=== PATIENT | male | born 1960 | race Caucasian/White ===

== ENCOUNTER → 2024-03-24 | Day surgery (SDC) | payer BC, MEDICARE ==
[2024-03-23 09:33] VITALS: BMI 33.7
[~2024-03-24] MED LIST: Dexamethasone 4 mg/ml Vial ONE; Lidocaine 2% PF 5 ML VIAL ONE; Ondansetron PF 4 MG/2 ML Vial ONE; PROPOFOL 0 ML ONE; fentaNYL 50 mcg/mL 1 mL Vial ONE
[2024-03-24 12:32] LABS: #Basophils 0.02 10x3/uL (0.0-0.2); #Eosinophils 0.06 10x3/uL (0.0-0.5); #Monocytes 0.46 10x3/uL (0.0-1.1); #Neutrophils 3.38 10x3/uL (1.5-8.4); %Basophils 0.3 % (0.0-2.0); %Lymphocytes 31.9 % (18.0-47.0); %Monocytes 7.9 % (0.0-10.0); %Neutrophils 58.4 % (40.0-75.0); Hematocrit 46.4 % (38.8-50.0); Hemoglobin 15.6 g/dL (13.5-17.5); Mean Corpuscular HGB CONC 33.6 g/dL (32.0-36.0); Mean Corpuscular Hemoglobin 32.5 pg (27.0-33.0); Mean Corpuscular Volume 96.7 fL (81.2-95.1); Mean Platelet Volume 9.8 fL (7.4-10.4); Platelet Count 129 10x3/uL (150-450); RBC Distribution Width 10.9 % (11.5-14.5); White Blood Cell (WBC) Count 5.8 10x3/uL (3.5-10.5)
[2024-03-24 12:47] LABS: Anion Gap 14 mmol/L (10-20); BUN (Urea Nitrogen) 16 mg/dL (8.4-25.7); Calc. Creatinine Clearance 104 mL/min (70-130); Calcium 9.9 mg/dL (7.8-10.44); Carbon Dioxide 28 mmol/L (23-31); Chloride 101 mmol/L (98-107); Estimated GFR 72; Glucose 137 mg/dL (80-115); Potassium 3.9 mmol/L (3.5-5.1); Sodium 139 mmol/L (136-145)
== END ==
LOC: CSHSDC 10:24
PROVIDERS: ATTEND Podiatrist Foot & Ankle Surgery
DX: M19.071 Primary osteoarthritis, right ankle and foot (principal); M72.2 Plantar fascial fibromatosis; Z53.9 Procedure and treatment not carried out, unspecified reason; Z88.0 Allergy status to penicillin; Z88.6 Allergy status to analgesic agent
CPT/HCPCS: 36415; 80048; 85025; J1100; J2405; J2704; J3010

== ENCOUNTER 2024-03-31 09:41 | Day surgery (SDC) | payer BC, MEDICARE ==
[2024-03-26 15:31] VITALS: BMI 33.7
[2024-03-31] MEDS ORDERED: Bupivacaine PF 0.5% 30 ML VIAL ONE (11:48)
[2024-03-31] MEDS ORDERED: PROPOFOL 20 ML ONE ×2 (11:55→11:58)
[2024-03-31] MEDS ORDERED: Lidocaine 1% PF 5 ML VIAL ONE (11:56)
[2024-03-31] MEDS ORDERED: fentaNYL 50 mcg/mL 1 mL Vial ONE ×2 (11:56→12:17)
[2024-03-31] MEDS ORDERED: Triamcinolone 40 MG/ML VIAL ONE ×2 (12:09→13:01)
[2024-03-31] MEDS ORDERED: Clindamycin/D5W 600 mg/50 ml Premix Bag ONE (12:12)
[2024-03-31] MEDS ORDERED: Dexamethasone 4 mg/ml Vial ONE (12:25)
[2024-03-31] MEDS ORDERED: Ondansetron PF 4 MG/2 ML Vial ONE (12:25)
[2024-03-31] MEDS ORDERED: ePHEDrine Sulfate 50 MG/10 ML VIAL ONE (12:29)
[2024-03-31] MEDS ORDERED: PHENYLEPHRINE-NS 100 MCG/ML 10 ML SYRINGE ONE (12:47)
== END 2024-03-31 14:36 | disposition home or self-care (01) ==
LOC: CSHSDC 09:41
PROVIDERS: ATTEND Podiatrist Foot & Ankle Surgery
PROC: 0S9F3ZZ Drainage of Right Ankle Joint, Percutaneous Approach (ICD-10-PCS; principal; 2024-03-31)
PROC: 0QBM0ZZ Excision of Left Tarsal, Open Approach (ICD-10-PCS; principal; 2024-03-31)
DX: M19.071 Primary osteoarthritis, right ankle and foot (principal); M72.2 Plantar fascial fibromatosis; I25.10 Atherosclerotic heart disease of native coronary artery without angina pectoris; I65.29 Occlusion and stenosis of unspecified carotid artery; I48.91 Unspecified atrial fibrillation; I48.92 Unspecified atrial flutter; I10 Essential (primary) hypertension; E11.9 Type 2 diabetes mellitus without complications; E78.5 Hyperlipidemia, unspecified; F41.9 Anxiety disorder, unspecified; F32.A Depression, unspecified; G47.33 Obstructive sleep apnea (adult) (pediatric); G89.29 Other chronic pain; M06.9 Rheumatoid arthritis, unspecified; M54.9 Dorsalgia, unspecified; N40.0 Benign prostatic hyperplasia without lower urinary tract symptoms; K21.9 Gastro-esophageal reflux disease without esophagitis; Z95.1 Presence of aortocoronary bypass graft; Z95.5 Presence of coronary angioplasty implant and graft; Z87.891 Personal history of nicotine dependence; Z86.73 Personal history of transient ischemic attack (TIA), and cerebral infarction without residual deficits; Z88.5 Allergy status to narcotic agent; Z88.8 Allergy status to other drugs, medicaments and biological substances; Z79.02 Long term (current) use of antithrombotics/antiplatelets; Z79.84 Long term (current) use of oral hypoglycemic drugs; Z79.01 Long term (current) use of anticoagulants; Z79.899 Other long term (current) drug therapy
CPT/HCPCS: J0665; J1100; J2405; J2704; J3010; J3301; J3490

== ENCOUNTER 2024-05-02 09:02 | Outpatient (CLI) | payer BC, MEDICARE | END 2024-05-02 09:03 | disposition home or self-care (01) | LOC: CSHSLEEP 09:02 | PROVIDERS: ATTEND Family Medicine | DX: G47.33 Obstructive sleep apnea (adult) (pediatric) (principal); R53.83 Other fatigue; E11.9 Type 2 diabetes mellitus without complications; E66.9 Obesity, unspecified; Z68.33 Body mass index [BMI] 33.0-33.9, adult; I25.10 Atherosclerotic heart disease of native coronary artery without angina pectoris | CPT/HCPCS: 95810 ==